=== PATIENT | female | born 1975 | race Caucasian/White ===

== ENCOUNTER 2018-10-10 12:18 | Outpatient (REF) | payer MEDICAID, SELFPAY ==
[2018-10-10 22:44] LABS: TSH (W/Ref FT4) 0.12 uIU/mL (0.358-3.74)
[2018-10-10 23:41] LABS: FREE T4 1.29 ng/dL (0.76-1.46)
== END 2018-10-10 12:38 ==
LOC: NCHCN 12:18
PROVIDERS: PCP Family Medicine; Visit Provider Family Medicine
DX: E03.9 Hypothyroidism, unspecified (principal)
CPT/HCPCS: 84439; 84443

== ENCOUNTER 2020-03-11 12:36 | Outpatient (REF) | payer MEDICAID, SELFPAY ==
[2020-03-11 19:21] LABS: TSH (W/Ref FT4) 2.17 uIU/mL (0.36-3.74)
== END 2020-03-11 12:56 ==
LOC: NCHCN 12:36
PROVIDERS: PCP Family Medicine; Visit Provider Nurse Practitioner
DX: E03.9 Hypothyroidism, unspecified (principal)
CPT/HCPCS: 84443

== ENCOUNTER 2021-06-02 16:30 | Outpatient (REF) | payer MEDICAID, SELFPAY ==
[2021-06-02 21:42] LABS: ALT 55 U/L (14-59); AST 42 U/L (15-37); Albumin 3.7 g/dL (3.4-5.0); Alkaline Phosphatase 67 U/L (46-116); Anion Gap 7.1 mmol/L (3-11); BUN 17 mg/dL (7-18); Bilirubin, Total 0.5 mg/dL (0.2-1.0); CO2 25.9 mmol/L (21.0-32.0); Calcium 8.8 mg/dL (8.5-10.1); Chloride 105 mmol/L (98-107); Glucose 86 mg/dL (74-106); Potassium 4.4 mmol/L (3.5-5.1); Sodium 138 mmol/L (136-145); Total Protein 6.9 g/dL (6.4-8.2)
[2021-06-03 00:16] LABS: FREE T4 1.03 ng/dL (0.76-1.46)
== END 2021-06-02 16:31 | disposition home or self-care (01) ==
LOC: NCHCN 16:30
PROVIDERS: PCP Family Medicine; Visit Provider Nurse Practitioner
DX: E03.9 Hypothyroidism, unspecified (principal)
CPT/HCPCS: 80053; 84439; 84443

== ENCOUNTER 2021-08-31 09:55 | Outpatient (REF) | payer MEDICAID, SELFPAY ==
--- NOTE | 2021-08-31 09:45 | PAPFT_PTH ---
PATIENT: Quinn Torres LOC: [facility]#:[id number] AGE/SX: 45/F ROOM: RE08/31/[address]: Aquiles Sanford : 1975 BED: DIS: 08/31/2021 SPEC #: [id number] RECD: 08/31/21 18:09 STATUS: LEONID REQ #: [id number] MEERA: 08/31/21 09:[address]: Aquiles Sanford DEPT: [facility] [place] Cytology RECD BY: Tari Murray ENTERED: 08/31/21 18:09 SP TYPE: PAPFT OTHR DR: Nisreen Ryan Tissues: 1 - CX/ENDOCX FOR PAP SMEARS Procedures: PAP THIN PREP/[facility] Screening HPV DNA PROBE Comments: [id number]
== END 2021-08-31 09:56 | disposition home or self-care (01) ==
LOC: NCHCN 09:55
PROVIDERS: PCP Family Medicine; Visit Provider Nurse Practitioner Family
DX: Z12.4 Encounter for screening for malignant neoplasm of cervix (principal); Z11.51 Encounter for screening for human papillomavirus (HPV)
CPT/HCPCS: 88142; 87624

== ENCOUNTER 2022-06-03 10:05 | Outpatient (REF) | payer MEDICAID, SELFPAY ==
[2022-06-03 15:53] LABS: Abs Immature Grans 0.02 10^3/uL (0.0-0.06); Absolute Basophil Count 0.04 10^3/uL (0.0-0.2); Absolute Eosinophil Count 0.13 10^3/uL (0.0-0.7); Absolute Monocyte Count 0.49 10^3/uL (0.1-0.8); Absolute Neutrophil Count 6.31 10^3/uL (1.2-6.7); Basophils % 0.5; Eosinophils % 1.6; HCT 40.2 % (36.0-46.0); HGB 13.3 g/dL (11.2-15.7); Immature Grans % 0.2; Lymphocytes % 13.6; MCH 27.4 pg (27.0-33.0); MCHC 33.1 % (32.0-36.0); MCV 83 fL (80-95); Monocytes % 6.1; Platelet Count 254 10^3/uL (130-400); RBC 4.86 10^6/uL (3.93-5.22); RDW 13.6 % (11.7-14.6); RDW-SD 40.9 fL; WBC 8.09 10^3/uL (4.4-10.8)
[2022-06-03 16:10] LABS: ALT 30 U/L (14-59); AST 20 U/L (15-37); Albumin 3.5 g/dL (3.4-5.0); Alkaline Phosphatase 74 U/L (46-116); Anion Gap 9.3 mmol/L (3-11); BUN 24 mg/dL (7-18); Bilirubin, Total 0.3 mg/dL (0.2-1.0); CO2 24.7 mmol/L (21.0-32.0); CREATININE 0.9 mg/dL (0.55-1.02); Calcium 9.2 mg/dL (8.5-10.1); Calculated LDL 121 mg/dL (<100); Chloride 107 mmol/L (98-107); Cholesterol 199 mg/dL (<200); Estimated GFR 80.34 (mL/min/1.73m2); Glucose 104 mg/dL (74-106); HDL Cholesterol 65 mg/dL (40-60); Potassium 4.3 mmol/L (3.5-5.1); Sodium 141 mmol/L (136-145); TSH (W/Ref FT4) 0.18 uIU/mL (0.36-3.74); Total Protein 7.2 g/dL (6.4-8.2); Triglyceride 67 mg/dL (<150)
[2022-06-03 16:44] LABS: FREE T4 1.04 ng/dL (0.76-1.46)
[2022-06-04 10:03] LABS: HIV-1/2 Ag & Ab Screen Negative (Negative)
[2022-06-04 10:22] LABS: Hepatitis C Ab w Rflx HCV PCR Negative (Negative)
== END 2022-06-03 10:06 | disposition home or self-care (01) ==
LOC: NCHCN 10:05
PROVIDERS: PCP Family Medicine; Visit Provider Nurse Practitioner Family
DX: E03.9 Hypothyroidism, unspecified (principal); K21.9 Gastro-esophageal reflux disease without esophagitis; G47.00 Insomnia, unspecified; Z51.81 Encounter for therapeutic drug level monitoring; Z11.4 Encounter for screening for human immunodeficiency virus [HIV]; Z11.59 Encounter for screening for other viral diseases
CPT/HCPCS: 80053; 80061; 86803; 87389; 84439; 84443; 85025

== ENCOUNTER 2022-11-18 14:23 | Outpatient (REF) | payer BC, MEDICAID, SELFPAY ==
[2022-11-18 15:46] LABS: Hemoglobin A1C 5.2 % (<5.7)
[2022-11-18 16:07] LABS: Anion Gap 8.6 mmol/L (3-11); BUN 16 mg/dL (7-18); CO2 26.4 mmol/L (21.0-32.0); CREATININE 0.9 mg/dL (0.55-1.02); Calcium 9.5 mg/dL (8.5-10.1); Chloride 103 mmol/L (98-107); Estimated GFR 79.85 (mL/min/1.73m2); Glucose 93 mg/dL (74-106); Potassium 4.3 mmol/L (3.5-5.1); Sodium 138 mmol/L (136-145)
== END 2022-11-18 14:24 | disposition home or self-care (01) ==
LOC: NCHCN 14:23
PROVIDERS: PCP Nurse Practitioner Family; Visit Provider Nurse Practitioner Family
DX: R63.5 Abnormal weight gain (principal); K21.9 Gastro-esophageal reflux disease without esophagitis; E03.9 Hypothyroidism, unspecified; Z13.1 Encounter for screening for diabetes mellitus
CPT/HCPCS: 80048; 83036; 84443

== ENCOUNTER 2023-12-06 14:04 | Outpatient (REF) | payer BC, SELFPAY ==
[2023-12-06 19:03] LABS: Abs Immature Grans 0.02 10^3/uL (0.0-0.06); Absolute Basophil Count 0.02 10^3/uL (0.0-0.2); Absolute Eosinophil Count 0.11 10^3/uL (0.0-0.7); Absolute Lymphocyte Count 1.26 10^3/uL (1.2-3.4); Absolute Monocyte Count 0.34 10^3/uL (0.1-0.8); Basophils % 0.4 %; Eosinophils % 1.9 %; HGB 13.3 g/dL (11.2-15.7); Immature Grans % 0.4 %; Lymphocytes % 22.3 %; MCH 27.7 pg (27.0-33.0); MCHC 34.1 % (32.0-36.0); MCV 81 fL (80-95); MPV 10.2 fL (8.0-11.0); Platelet Count 256 10^3/uL (130-400); RDW 13.4 % (11.7-14.6); RDW-SD 39.6 fL; WBC 5.65 10^3/uL (4.4-10.8)
[2023-12-06 19:27] LABS: ALT 47 U/L (14-59); AST 30 U/L (15-37); Albumin 3.6 g/dL (3.4-5.0); Alkaline Phosphatase 64 U/L (46-116); BUN 18 mg/dL (7-18); Bilirubin, Total 0.25 mg/dL (0.2-1.0); CREATININE 0.9 mg/dL (0.55-1.02); Calcium 9.1 mg/dL (8.5-10.1); Chloride 105 mmol/L (98-107); Estimated GFR 79.35 (mL/min/1.73m2); FREE T4 0.98 ng/dL (0.76-1.46); Glucose 87 mg/dL (74-106); Potassium 3.9 mmol/L (3.5-5.1); Sodium 142 mmol/L (136-145); TSH 1.47 uIU/Ml (0.36-3.74); Total Protein 6.8 g/dL (6.4-8.2)
[2023-12-06 19:28] LABS: Hemoglobin A1C 5.4 % (<5.7)
[2023-12-07 20:28] LABS: T3, Total 130 ng/dL (97-169)
[2023-12-09 12:30] LABS: Lamotrigine 1.3 mcg/mL (3.0-15.0)
== END 2023-12-06 14:05 | disposition home or self-care (01) ==
LOC: NCHCN 14:04
PROVIDERS: PCP Nurse Practitioner Family; Visit Provider Nurse Practitioner Family
DX: E03.9 Hypothyroidism, unspecified (principal); G47.00 Insomnia, unspecified; E66.8 Other obesity; Z68.41 Body mass index [BMI] 40.0-44.9, adult; F31.89 Other bipolar disorder; Z51.81 Encounter for therapeutic drug level monitoring; Z79.899 Other long term (current) drug therapy
CPT/HCPCS: 80053; 80175; 83036; 84439; 84443; 84480; 85025

== ENCOUNTER 2024-07-20 17:23 | Outpatient (REF) | payer BC, SELFPAY ==
[2024-07-20 18:45] LABS: Hemoglobin A1C 5.5 % (<5.7)
[2024-07-20 18:54] LABS: ALT 33 U/L (14-59); AST 22 U/L (15-37); Albumin 3.9 g/dL (3.4-5.0); Alkaline Phosphatase 80 U/L (46-116); BUN 14 mg/dL (7-18); Bilirubin, Total 0.27 mg/dL (0.2-1.0); Calcium 9.4 mg/dL (8.5-10.1); Calculated LDL 125 mg/dL (<100); Chloride 104 mmol/L (98-107); Cholesterol 212 mg/dL (<200); Estimated GFR 69.93 (mL/min/1.73m2); Glucose 90 mg/dL (74-106); HDL Cholesterol 72 mg/dL (40-60); Potassium 4.4 mmol/L (3.5-5.1); Sodium 139 mmol/L (136-145); TSH 4.28 uIU/mL (0.36-3.74); Total Protein 7.6 g/dL (6.4-8.2); Triglyceride 78 mg/dL (<150)
[2024-07-20 19:17] LABS: FREE T4 0.98 ng/dL (0.76-1.46)
[2024-07-24 13:53] LABS: Lamotrigine 1.1 mcg/mL (3.0-15.0)
== END 2024-07-20 17:24 | disposition home or self-care (01) ==
LOC: NCHCN 17:23
PROVIDERS: PCP Nurse Practitioner Family; Visit Provider Nurse Practitioner Family
DX: F31.9 Bipolar disorder, unspecified (principal); Z79.899 Other long term (current) drug therapy; Z68.41 Body mass index [BMI] 40.0-44.9, adult; Z13.220 Encounter for screening for lipoid disorders; E66.9 Obesity, unspecified
CPT/HCPCS: 80053; 80061; 80175; 83036; 84439; 84443

== ENCOUNTER → 2025-04-19 03:29 | Outpatient (CLI) | payer BC, SELFPAY ==
--- NOTE | 2025-04-19 | DI.MAMMO_ITS ---
Exam(s) MAMMO SCREENING EXAM: MAMMO SCREENING CLINICAL HISTORY: SCREENING, Z12.31. TECHNIQUE: Bilateral full field digital CC and MLO mammographic images were obtained with 3D tomosynthesis and utilizing computer aided detection (CAD). COMPARISON: None. This is a baseline mammogram on a 49-year-old FINDINGS: There are no spiculated masses nor malignant appearing microcalcification groups. There is no significant architectural distortion nor skin thickening-retraction. IMPRESSION: No radiographic evidence of malignancy. BI-RADS Category 1 - Negative Breast Density - Category B - There are scattered areas of fibroglandular density. Breast density Category C or D implies that the patient has dense breast tissue. Dense breast tissue can make it harder to find cancer on a mammogram. Dense breast tissue is also associated with an increased risk of breast cancer. This information about the result of the mammogram report was provided to the patient to raise their awareness. Use this report when you speak with the patient about their risks for breast cancer, which includes their family history. At that time, you may recommend additional screening tests (Ultrasound or MRI) as these tests may add significant information. A negative radiographic report should not delay biopsy if a dominant or clinically suspicious mass is present. Up to ten percent of cancers are not identified on mammography. A negative report may reinforce clinical impression. Adenosis and dense breasts may obscure an underlying neoplasm. False positive reports average 6 to 10%. Patient will receive a letter notifying them of these results.
== END ==
LOC: DI 03:29
PROVIDERS: PCP Nurse Practitioner Family
DX: Z12.31 Encounter for screening mammogram for malignant neoplasm of breast (principal)
CPT/HCPCS: 77063; 77067

== ENCOUNTER 2025-04-29 15:41 | Outpatient (REF) | payer BC, SELFPAY ==
[2025-04-29 22:16] LABS: Ferritin 66 ng/mL (7-271); Folate 18.0 ng/mL (>5.38)
[2025-04-29 22:17] LABS: Vitamin B12 534 pg/mL (211-911)
[2025-04-29 22:18] LABS: Iron 69 ug/dL (50-170); Total Iron Binding Capacity 307 ug/dL (250-425)
[2025-04-30 16:14] LABS: TSH 5.90 uIU/mL (0.55-4.78)
== END 2025-04-29 15:42 | disposition home or self-care (01) ==
LOC: NCHCN 15:41
PROVIDERS: PCP Nurse Practitioner Family
DX: G25.81 Restless legs syndrome (principal); E03.9 Hypothyroidism, unspecified
CPT/HCPCS: 82607; 82728; 82746; 83540; 83550; 84439; 84443